=== PATIENT | female | born 1995 | race African-American/Black ===

== ENCOUNTER 2017-02-08 15:31 | Emergency (ER) | payer MEDICAID ==
[~2017-02-08] VITALS: Ht 167.6 cm; Wt 88.0 kg
[2017-02-08 15:32] VITALS: BP 126/59
[2017-02-08] MEDS ORDERED: KETOROLAC 60MG/2ML VIAL IM ONE (16:30)
[2017-02-08] MEDS ORDERED: HYDROCODONE/ACETAMINOPHEN 5/325MG TABLET PO ONE (17:15)
[2017-02-08] MEDS ORDERED: HYDROCODONE/APAP 7.5/325MG 1 TAB TABLET PO ONE (17:15)
== END 2017-02-08 18:03 | disposition home or self-care (01) ==
LOC: ER 15:56
DX: S39.012A Strain of muscle, fascia and tendon of lower back, initial encounter (principal); J06.9 Acute upper respiratory infection, unspecified; F12.10 Cannabis abuse, uncomplicated; Z90.49 Acquired absence of other specified parts of digestive tract; X58.XXXA Exposure to other specified factors, initial encounter; Y92.013 Bedroom of single-family (private) house as the place of occurrence of the external cause
CPT/HCPCS: 81025; 99283; J1885

== ENCOUNTER 2017-09-11 21:01 | Emergency (ER) | payer MEDICAID ==
[~2017-09-11] VITALS: Ht 175.3 cm; Wt 92.0 kg
[2017-09-11 21:21] VITALS: BP 143/61
== END 2017-09-12 01:14 | disposition left against medical advice (07) ==
LOC: ER 21:01
DX: R07.9 Chest pain, unspecified (principal); Z53.21 Procedure and treatment not carried out due to patient leaving prior to being seen by health care provider

== ENCOUNTER 2018-12-28 20:12 | Emergency (ER) | payer SELFPAY ==
[~2018-12-28] VITALS: Ht 175.3 cm; Wt 123.5 kg
[2018-12-29] MEDS ORDERED: KETOROLAC 60MG/2ML VIAL IM STA (02:07)
[2018-12-29 06:47] VITALS: BP 120/68
== END 2018-12-29 06:48 | disposition home or self-care (01) ==
LOC: ER 20:12
DX: S01.511A Laceration without foreign body of lip, initial encounter (principal); M25.562 Pain in left knee; F12.10 Cannabis abuse, uncomplicated; Y04.0XXA Assault by unarmed brawl or fight, initial encounter; W01.0XXA Fall on same level from slipping, tripping and stumbling without subsequent striking against object, initial encounter; Y93.89 Activity, other specified; Y92.488 Other paved roadways as the place of occurrence of the external cause
CPT/HCPCS: 73562; 96372; 99283; J1885; L1830